=== PATIENT | female | born 1965 | race Caucasian/White ===

== ENCOUNTER 2016-10-31 19:43 | Emergency (ER) | payer BC ==
[~2016-10-31] VITALS: Ht 170.2 cm; Wt 97.4 kg
[~2016-10-31 19:43] MED LIST: ACETAMINOPHEN500 MG PO; ALBUTEROL SULF8.5 GM IH; ASPIRIN81 M1 PO; ATARAX,VISTARIL25 MG PO; CIPRO500 MG PO; DOCUSATE SODIU1 EAC1 PO; EFFEXOR XR75 MG PO; FIORICET 50-301 EACH PO; FLAGYL500 MG PO; HYDROCODON-ACE1 EAC7 PO; METFORMIN HCL500 MG PO; MIRALAX17 GM PO; MOBIC15 MG PO; MOTRIN600 MG PO; NAPROXEN500 MG PO; PERCOCET 5/31 TABLET PO; PLAQUENIL200 MG PO; PREDNISONE; PREDNISONE20 MG PO; SYNTHROID112 MCG PO; SYNTHROID137 MCG PO; SYNTHROID175 MCG PO; TRAZODONE HCL50 MG PO; VENLAFAXINE HC150 M1 PO; ZANTAC300 MG PO; ZOFRAN ODT4 MG PO; ZOFRAN4 MG PO; ZOLOFT25 MG PO; ZOLOFT50 MG PO
[2016-10-31 20:28] LABS: HEMATOCRIT 41.7 % (36.0-46.0); MCH 31.4 PG (29.0-34.0); MCHC 35.7 G/DL (30.0-36.0); MEAN PLAT.VOLUME 9.5 uM^3 (9.5-12.4); PLATELET COUNT 314 K/uL (156-360); RBC DIS.WIDTH-CV 12.4 % (11.8-14.6); RBC DIS.WIDTH-SD 39.2 % (39-53); RED BLOOD COUNT 4.74 M/uL (3.80-5.20); WHITE BLOOD COUNT 7.5 K/uL (4.1-10.2)
[2016-10-31] MEDS ORDERED: PRAVACHOL20 MG PO (20:40)
[2016-10-31] MEDS ORDERED: ERGOCALCIF50000 UNIT PO (20:41)
[2016-10-31 20:48] LABS: CHLORIDE 103 mEq/L (99-109); POTASSIUM 3.9 mEq/L (3.7-5.4); SODIUM 139 mEq/L (136-147)
[2016-10-31 20:50] LABS: GLUCOSE 111 mg/dL (70-99)
[2016-10-31 20:51] LABS: ANION GAP 12 MEQ/L (2-14)
[2016-10-31 20:52] LABS: TOTAL BILIRUBIN 0.4 mg/dL (0.0-1.0)
[2016-10-31 20:54] LABS: ALKALINE PHOSPHATASE 80 IU/L (3-129); GFR ESTIMATE (CALCULATED) 56 mL/min/
[2016-10-31 20:55] LABS: UREA NITROGEN (BUN) 8 mg/dL (9-23)
[2016-10-31 20:57] LABS: LIPASE 32 U/L (1.0-51.0); QUANTITATIVE HCG < 4.0 MIU/ML
[2016-10-31 20:58] LABS: ADD MIUA? YES; BILIRUBIN NEGATIVE; BLOOD NEGATIVE; COLOR DK YELLOW ((YELLOW)); GLUCOSE (STRIP) NEGATIVE; KETONES NEGATIVE; LEUKOCYTES SMALL; NITRITE NEGATIVE; PH, URINE 5.5 (5-8); PROTEIN (STRIP) 30; SPECIFIC GRAVITY 1.031 (1.000-1.030); UROBILINOGEN 0.2 MG/DL (0.2-1.0)
[2016-10-31 21:49] LABS: CRYSTALS PRESENT
[2016-10-31 21:50] LABS: BACTERIA NONE SEEN /HPF; CALCIUM OXALATE CRYSTALS 2+ /HPF; CASTS NONE SEEN /LPF; EPITHELIAL CELLS 1+ /HPF; MUCUS 1+ /LPF; RED BLOOD CELLS 0-5 /HPF (0-5); UCUL ADDED? NO; WHITE BLOOD CELLS 0-5 /HPF (0-5)
[2016-10-31] MEDS ORDERED: PERCOCET 5/31 TABLET PO (23:27)
[2016-10-31] MEDS ORDERED: ZOFRAN4 MG PO (23:27)
[2016-11-01 00:34] VITALS: BP 131/96
== END 2016-11-01 00:36 | disposition home or self-care (01) ==
LOC: RME 19:43 → EME 19:43 → RME 11-01 00:36
DX: K81.1 Chronic cholecystitis (principal); E11.9 Type 2 diabetes mellitus without complications; I25.2 Old myocardial infarction; Z85.850 Personal history of malignant neoplasm of thyroid
CPT/HCPCS: 76705; 80053; 81003; 83690; 84702; 85027; 99281; 99284; J1885

== ENCOUNTER 2016-11-14 06:55 | Day surgery (SDC) | payer BC ==
[~2016-11-14] VITALS: Ht 170.2 cm; Wt 100.0 kg
[~2016-11-14 06:55] MED LIST changes: +ERGOCALCIF50000 UNIT PO; +PRAVACHOL20 MG PO
[2016-11-14 07:46] VITALS: BP 154/92
[2016-11-14 08:04] LABS: POINT-OF-CARE METER ID UU14174212
[2016-11-14] MEDS ORDERED: PERCOCET 5/31 TABLET PO (11:48)
[2016-11-14] MEDS ORDERED: COLACE100 MG PO (11:48)
[2016-11-14 12:16] LABS: POINT-OF-CARE METER ID UU13113675
[2016-11-14 14:15] VITALS: BP 140/86
[2016-11-14 15:00] VITALS: BP 139/82
== END 2016-11-14 15:00 | disposition home or self-care (01) ==
LOC: SDC 06:55 → EDSTATUS 14:12 → 2SOUTH 14:12 → SDC 14:13
PROVIDERS: Surgery
PROC: 0FT44ZZ Resection of Gallbladder, Percutaneous Endoscopic Approach (ICD-10-PCS; principal; 2016-11-14)
DX: K80.10 Calculus of gallbladder with chronic cholecystitis without obstruction (principal); K21.9 Gastro-esophageal reflux disease without esophagitis; E78.5 Hyperlipidemia, unspecified; M54.5 Low back pain
CPT/HCPCS: 74300; 82948; 88304; 93005; J0330; J1100; J1170; J1200; J2250; J2405; J2710; J2765; J3010

== ENCOUNTER → 2017-02-23 | Outpatient (CLI) | payer BC ==
[~2017-02-23] MED LIST changes: +COLACE100 MG PO
== END | disposition home or self-care (01) ==
LOC: RES 08:46
DX: R06.02 Shortness of breath (principal)
CPT/HCPCS: 94070; 94726; 94729